=== PATIENT | female | born 1985 | race Two or more races ===

== ENCOUNTER 2023-07-28 23:45 | Emergency (ER) | payer OTHER ==
[~2023-07-28] VITALS: Ht 165.1 cm; Wt 62.6 kg
[2023-07-29] MEDS ORDERED: METHOTREXATE2.5 MG PO (00:12)
[2023-07-29] MEDS ORDERED: PREDNISONE10 M1 PO (00:12)
[2023-07-29] MEDS ORDERED: DORYX200 MG PO (03:20)
[2023-07-29 04:37] LABS: COCAINE POSITIVE (NEGATIVE); METHADONE NEGATIVE (NEGATIVE); OPIATES NEGATIVE (NEGATIVE); THC ( Cannabinoids) NEGATIVE (NEGATIVE)
== END 2023-07-29 03:45 | disposition home or self-care (01) ==
LOC: ER 23:46
PROVIDERS: General Practice
DX: Z91.410 Personal history of adult physical and sexual abuse (principal); Z77.121 Contact with and (suspected) exposure to harmful algae and algae toxins